=== PATIENT | female | born 2000 | race Hispanic/Latino ===

== ENCOUNTER 2021-07-16 21:49 | Outpatient (CLI) | payer OTHER ==
[2021-07-16 22:23] VITALS: BP 115/69
[2021-07-16] MEDS ORDERED: LACTATED RINGERS 1,000 ML IV ONE (23:19)
[2021-07-17 00:01] LABS: Amorphous Crystals,Urine Few; Bacteria,Urine 1+ /HPF (Negative); Bilirubin,Urine NEG (Negative); Blood,Urine NEG (Negative); Color,Urine Yellow (Yellow); Mucus,Urine FEW /HPF; Protein,Urine <15 mg/dL mg/dL (Negative); Urobilinogen,Urine < 2.0 mg/dL (<2.0)
[2021-07-17 00:57] LABS: Amphetamine Screen,Urine PRESUMPTIVE NEGATIVE; Benzodiazepines Screen,Urine PRESUMPTIVE NEGATIVE; Cannabinoid Screen,Urine PRESUMPTIVE NEGATIVE; Cocaine Screen,Urine PRESUMPTIVE NEGATIVE; Methadone Screen,Urine PRESUMPTIVE NEGATIVE; Opiate Screen,Urine PRESUMPTIVE NEGATIVE
--- NOTE | 2021-07-17 01:51 | Ultrasound Report ---
ULTRASOUND OBSTETRIC LIMITED INDICATION / CLINICAL INFORMATION: fall - rule out abruption. Clinical Gestational Age (GA) in weeks, days: 23, 0 TECHNIQUE: Transabdominal. COMPARISON: None available. FINDINGS: HEART RATE (beats per minute): 144 PRESENTATION: Cephalic. ADDITIONAL FINDINGS: There is an anterior grade 1 placenta with no evidence of placental abruption. IMPRESSION: 1. No evidence of placental abruption. Signer Name: Armin Durham DO Signed: 07/17/2021 1:47 AM Workstation Name: [id number]
== END 2021-07-17 02:25 | disposition home or self-care (01) ==
LOC: TRG 21:49 → APU 21:59 → TRG 07-17 02:25
PROVIDERS: ATTEND Obstetrics & Gynecology
DX: O26.892 Other specified pregnancy related conditions, second trimester (principal); Z3A.22 22 weeks gestation of pregnancy
CPT/HCPCS: 59025; 76815; 80307; 81001

== ENCOUNTER 2021-10-16 15:54 | Outpatient (CLI) | payer OTHER ==
[2021-10-16] MEDS ORDERED: LACTATED RINGERS 1,000 ML IV ONE (16:10)
[2021-10-16 16:18] VITALS: BP 124/68
[2021-10-16 16:40] LABS: Bilirubin,Urine NEG (Negative); Blood,Urine NEG (Negative); Color,Urine Yellow (Yellow); Mucus,Urine FEW /HPF; Protein,Urine <15 mg/dL mg/dL (Negative); Urobilinogen,Urine < 2.0 mg/dL (<2.0)
--- NOTE | 2021-10-16 17:09 | Event Note ---
Date: 10/16/21 Pt is LIfe cycle obgyn pt that present for r/o labor. RN states pt is closed. She was advised if pt has cat 1 tracing and contractions are not regular she can be d/c home.
== END 2021-10-16 17:36 | disposition home or self-care (01) ==
LOC: TRG 15:54 → APU 15:56 → TRG 17:36
PROVIDERS: ATTEND Obstetrics & Gynecology
DX: Z34.93 Encounter for supervision of normal pregnancy, unspecified, third trimester (principal); Z3A.36 36 weeks gestation of pregnancy
CPT/HCPCS: 59025; 81001

== ENCOUNTER 2021-11-06 12:59 | Outpatient (CLI) | payer OTHER ==
[2021-11-06 13:43] VITALS: BP 134/78
== END 2021-11-06 15:50 | disposition home or self-care (01) ==
LOC: TRG 12:59 → APU 13:00 → TRG 15:50
PROVIDERS: ATTEND Obstetrics & Gynecology
DX: Z34.93 Encounter for supervision of normal pregnancy, unspecified, third trimester (principal); Z3A.39 39 weeks gestation of pregnancy
CPT/HCPCS: 59025